=== PATIENT | male | born 1985 | race Caucasian/White ===

== ENCOUNTER 2018-05-01 04:42 | Emergency (ER) | payer OTHER ==
[~2018-05-01] VITALS: Ht 182.9 cm; Wt 81.7 kg
[~2018-05-01 04:42] MED LIST: BACTRIM DS TAB1 EACH PO; PENICILLIN VK250 MG PO; TRAMADOL 50 MG50 MG PO; ZOFRAN ODT4 MG SUBLING
[2018-05-01] MEDS ORDERED: VYVANSE (04:58)
[2018-05-01] MEDS ORDERED: LITHIUM (04:58)
[2018-05-01 05:33] LABS: URINE BILIRUBIN NEGATIVE (Negative); URINE BLOOD NEGATIVE (Negative); URINE CLARITY CLEAR; URINE COLOR YELLOW; URINE GLUCOSE-RANDOM NEGATIVE (Negative); URINE KETONES NEGATIVE (Negative); URINE LEUKOCYTES-REFLEX NEGATIVE (Negative); URINE NITRITE-REFLEX NEGATIVE (Negative); URINE PROTEIN NEGATIVE (Negative); URINE SPECIFIC GRAVITY >= 1.030 (1.005-1.030); URINE UROBILINOGEN 0.2 E.U./dl (0.2-1.0)
[2018-05-01 05:41] LABS: HEMATOCRIT 49.9 % (42.0-52.0); HEMOGLOBIN 16.8 gm/dL (14.0-18.0); MCH 28.7 pg (26.0-34.0); MCHC 33.6 g/dL (28.0-37.0); MCV 85.4 fL (80.0-100.0); MPV 7.8 fl. (7.2-11.1); NUCLEATED RBCS 0 /100WBC; PLATELET COUNT* 202 thou/uL (150-400); RBC 5.84 mil/uL (4.50-6.00); RDW-CV 13.3 % (10.5-14.5); WBC 11.1 thou/uL (4.0-11.0)
[2018-05-01 05:53] LABS: CALCIUM 8.7 mg/dL (8.5-10.1); CREATININE 1.2 mg/dL (0.6-1.3)
[2018-05-01 05:58] LABS: ALBUMIN 4.2 g/dL (3.4-5.0); TOTAL BILIRUBIN 2.5 mg/dL (<0.1-1.0)
[2018-05-01 06:01] LABS: ABSOLUTE LYMPHOCYTES 0.9 thou/uL (0.8-5.3); ABSOLUTE MONOCYTES 0.4 thou/uL (0.0-1.2); ABSOLUTE NEUTROPHILS 9.8 thou/uL (1.6-8.1); PLATELET ESTIMATE ADEQUATE
[2018-05-01 06:02] LABS: ANISOCYTOSIS 1+; POIKILOCYTOSIS 1+
[2018-05-01 06:31] LABS: AMP/METHAMP POSITIVE (Negative); BARBITURATES Negative (Negative); BENZODIAZEPINES Negative (Negative); COCAINE Negative (Negative); METHADONE Negative (Negative); OPIATES Negative (Negative); PCP Negative (Negative); THC POSITIVE (Negative)
[2018-05-01] MEDS ORDERED: HYDROCODON-ACE1 EAC8 PO (06:53)
[2018-05-01] MEDS ORDERED: ZOFRAN ODT4 MG PO (06:53)
[2018-05-01 07:06] VITALS: BP 120/74
== END 2018-05-01 07:07 | disposition home or self-care (01) ==
LOC: M.ERS 04:42
PROVIDERS: Emergency Medicine
DX: R10.32 Left lower quadrant pain (principal); R10.31 Right lower quadrant pain; F90.9 Attention-deficit hyperactivity disorder, unspecified type; F17.210 Nicotine dependence, cigarettes, uncomplicated

== ENCOUNTER → 2018-09-11 | Emergency (ER) | payer OTHER ==
[~2018-09-11] VITALS: Ht 182.9 cm; Wt 79.6 kg
[~2018-09-11] MED LIST changes: +HYDROCODON-ACE1 EAC8 PO; +LITHIUM; +VYVANSE; +ZOFRAN ODT4 MG PO
[2018-09-11 07:57] LABS: HEMATOCRIT 51.7 % (42.0-52.0); HEMOGLOBIN 17.4 gm/dL (14.0-18.0); MCH 28.4 pg (26.0-34.0); MCHC 33.6 g/dL (28.0-37.0); MCV 84.4 fL (80.0-100.0); MPV 8.4 fl. (7.2-11.1); RBC 6.12 mil/uL (4.50-6.00); RDW-CV 13.9 % (10.5-14.5); WBC 15.6 thou/uL (4.0-11.0)
[2018-09-11 08:01] LABS: CALCIUM 10.1 mg/dL (8.5-10.1); CREATININE 1.4 mg/dL (0.6-1.3); POTASSIUM 3.8 mmol/L (3.5-5.1)
[2018-09-11 08:06] LABS: ALBUMIN 4.9 g/dL (3.4-5.0); TOTAL BILIRUBIN 3.3 mg/dL (<0.1-1.0); TOTAL PROTEIN 7.7 g/dL (6.4-8.2)
[2018-09-11 08:07] LABS: ACETAMINOPHEN < 2 ug/mL (10-30); ALCOHOL < 10 mg/dL (<10)
[2018-09-11 08:08] LABS: SALICYLATE < 2.8 mg/dL (2.8-20.0)
[2018-09-11 09:31] LABS: URINE BILIRUBIN NEGATIVE (Negative); URINE BLOOD NEGATIVE (Negative); URINE CLARITY CLEAR; URINE COLOR YELLOW; URINE GLUCOSE-RANDOM NEGATIVE (Negative); URINE KETONES NEGATIVE (Negative); URINE LEUKOCYTES NEGATIVE (Negative); URINE NITRITE NEGATIVE (Negative); URINE PROTEIN NEGATIVE (Negative); URINE UROBILINOGEN 0.2 E.U./dl (0.2-1.0)
[2018-09-11 09:37] LABS: AMP/METHAMP POSITIVE (Negative); BARBITURATES Negative (Negative); BENZODIAZEPINES POSITIVE (Negative); COCAINE Negative (Negative); METHADONE Negative (Negative); OPIATES Negative (Negative); PCP Negative (Negative); THC POSITIVE (Negative)
[2018-09-11 10:45] VITALS: BP 110/68
--- NOTE | 2018-09-11 10:54 | EKG ---
[place] [address] ELECTROCARDIOGRAM REPORT Name: BETH MIXON Room: [facility]#: [id number] Admission: 09/11/18 Attend Phys: Discharge: Date of : 87 Report #: [id number] THIS REPORT FOR: //name// [facility] ED Test Date: 2018-09-11 Test Time: 07:32:51 Pat Name: BETH ZULUAGASUZANNE Department: Room: Gender: M [employer] E[employer]ctor: JEREMY : 1985 Requested By: Dagmar Montenegro Order Number: [id number] MD: Teofilo Clark Measurements Intervals [place] Rate: 110 P: 72 MT: 138 QRS: 71 QRSD: 89 T: 48 QT: 352 QTc: 477 Interpretive Statements Sinus tachycardia Borderline prolonged QT interval Baseline wander in lead(s) V6 No previous ECG available for comparison Electronically Signed On 09-11-2018 10:54:21 CDT by Teofilo Clark [email or web address] <ELECTRONICALLY SIGNED> By: Teofilo Clark MD, [facility] 09/11/18 1054 0732 1 Teofilo Clark MD, FACC /EPI
== END ==
LOC: M.ERS 07:21
PROVIDERS: Personal Emergency Response Attendant
DX: F19.10 Other psychoactive substance abuse, uncomplicated (principal); F17.210 Nicotine dependence, cigarettes, uncomplicated

== ENCOUNTER 2019-01-29 17:47 | Emergency (ER) | payer OTHER ==
[~2019-01-29] VITALS: Ht 182.9 cm; Wt 86.2 kg
[2019-01-29] MEDS ORDERED: NORCO 5-325 TA1 EAC1 PO (19:05)
[2019-01-29] MEDS ORDERED: NAPROSYN500 MG PO (19:05)
[2019-01-29] MEDS ORDERED: MEDROLDOSEPACK PO (19:05)
[2019-01-29 19:58] VITALS: BP 112/51
== END 2019-01-29 19:58 | disposition home or self-care (01) ==
LOC: M.ERS 17:47
DX: M54.16 Radiculopathy, lumbar region (principal); F90.9 Attention-deficit hyperactivity disorder, unspecified type; F17.210 Nicotine dependence, cigarettes, uncomplicated

== ENCOUNTER 2019-02-28 19:04 | Emergency (ER) | payer OTHER ==
[~2019-02-28] VITALS: Ht 180.3 cm; Wt 81.7 kg
[~2019-02-28 19:04] MED LIST changes: +MEDROLDOSEPACK PO; +NAPROSYN500 MG PO; +NORCO 5-325 TA1 EAC1 PO
[2019-02-28] MEDS ORDERED: HYDROCODON-ACE1 EAC8 PO (20:35)
[2019-02-28] MEDS ORDERED: FLEXERIL PO (20:35)
[2019-02-28] MEDS ORDERED: MEDROLDOSEPACK PO (20:39)
[2019-02-28 20:50] VITALS: BP 126/67
== END 2019-02-28 20:52 | disposition home or self-care (01) ==
LOC: M.ERS 19:04
DX: S39.012A Strain of muscle, fascia and tendon of lower back, initial encounter (principal); M62.830 Muscle spasm of back; F90.9 Attention-deficit hyperactivity disorder, unspecified type; F17.210 Nicotine dependence, cigarettes, uncomplicated; V89.2XXA Person injured in unspecified motor-vehicle accident, traffic, initial encounter; Y93.89 Activity, other specified; Y92.89 Other specified places as the place of occurrence of the external cause; Y99.8 Other external cause status

== ENCOUNTER 2019-03-15 20:57 | Emergency (ER) | payer OTHER ==
[~2019-03-15] VITALS: Ht 180.3 cm; Wt 81.7 kg
[~2019-03-15 20:57] MED LIST changes: +FLEXERIL PO
[2019-03-15 21:00] VITALS: BP 123/63
[2019-03-15] MEDS ORDERED: ULTRAM 50MG TAB50 MG PO (21:24)
[2019-03-15] MEDS ORDERED: CLINDAMYCIN HC150 MG PO (21:24)
[2019-03-16] MEDS ORDERED: LIDOCAINE VISC100 ML SWISH&SPIT (11:41)
== END 2019-03-15 21:55 | disposition home or self-care (01) ==
LOC: M.ERS 20:57
DX: S02.5XXA Fracture of tooth (traumatic), initial encounter for closed fracture (principal); K02.9 Dental caries, unspecified; F90.9 Attention-deficit hyperactivity disorder, unspecified type; F17.210 Nicotine dependence, cigarettes, uncomplicated; X58.XXXA Exposure to other specified factors, initial encounter; Y93.89 Activity, other specified; Y92.89 Other specified places as the place of occurrence of the external cause; Y99.8 Other external cause status

== ENCOUNTER 2019-03-16 11:22 | Emergency (ER) | payer OTHER ==
[~2019-03-16] VITALS: Ht 180.3 cm; Wt 81.7 kg
[~2019-03-16 11:22] MED LIST changes: +CLINDAMYCIN HC150 MG PO; +ULTRAM 50MG TAB50 MG PO
[2019-03-16 11:26] VITALS: BP 145/95
[2019-03-16] MEDS ORDERED: LIDOCAINE VISC100 ML SWISH&SPIT (11:41)
== END 2019-03-16 11:49 | disposition home or self-care (01) ==
LOC: M.ERS 11:22
DX: K04.7 Periapical abscess without sinus (principal); F90.9 Attention-deficit hyperactivity disorder, unspecified type; F17.210 Nicotine dependence, cigarettes, uncomplicated

== ENCOUNTER 2019-07-09 21:51 | Emergency (ER) | payer OTHER ==
[~2019-07-09] VITALS: Ht 180.3 cm; Wt 83.9 kg
[~2019-07-09 21:51] MED LIST changes: +LIDOCAINE VISC100 ML SWISH&SPIT
[2019-07-09 22:25] LABS: ABSOLUTE BASOPHILS 0.1 thou/uL (0.0-0.2); ABSOLUTE EOSINOPHILS 0.1 thou/uL (0.0-0.7); ABSOLUTE LYMPHOCYTES 3.2 thou/uL (0.8-5.3); ABSOLUTE MONOCYTES 0.5 thou/uL (0.0-1.2); BASOPHILS 0.6 %; EOSINOPHILS 1.5 %; HEMATOCRIT 43.6 % (42.0-52.0); HEMOGLOBIN 14.9 gm/dL (14.0-18.0); MCH 28.8 pg (26.0-34.0); MCHC 34.3 g/dL (28.0-37.0); MCV 84.1 fL (80.0-100.0); MONOCYTES 5.4 %; MPV 8.2 fl. (7.2-11.1); NUCLEATED RBCS 0 /100WBC; PLATELET COUNT* 193 thou/uL (150-400); POLYS 56.5 %; RBC 5.18 mil/uL (4.50-6.00); RDW-CV 13.3 % (10.5-14.5); WBC 8.9 thou/uL (4.0-11.0)
[2019-07-09 22:30] LABS: URINE BILIRUBIN NEGATIVE (Negative); URINE BLOOD NEGATIVE (Negative); URINE CLARITY CLEAR; URINE COLOR YELLOW; URINE GLUCOSE-RANDOM NEGATIVE (Negative); URINE KETONES NEGATIVE (Negative); URINE LEUKOCYTES-REFLEX NEGATIVE (Negative); URINE NITRITE-REFLEX NEGATIVE (Negative); URINE PROTEIN NEGATIVE (Negative); URINE UROBILINOGEN 0.2 E.U./dl (0.2-1.0)
[2019-07-09 22:31] LABS: CALCIUM 8.7 mg/dL (8.5-10.1); CREATININE 1.2 mg/dL (0.6-1.3); POTASSIUM 3.9 mmol/L (3.5-5.1)
[2019-07-09 22:36] LABS: TOTAL BILIRUBIN 0.9 mg/dL (<0.1-1.0); TOTAL PROTEIN 6.6 g/dL (6.4-8.2)
[2019-07-09 22:37] LABS: AMP/METHAMP Negative (Negative); BARBITURATES Negative (Negative); BENZODIAZEPINES Negative (Negative); COCAINE Negative (Negative); METHADONE Negative (Negative); OPIATES Negative (Negative); PCP Negative (Negative); THC Negative (Negative)
[2019-07-09] MEDS ORDERED: AMITRIPTYLINE H25 M2 PO (23:04)
[2019-07-09] MEDS ORDERED: ZOLOFT100 MG PO (23:04)
[2019-07-09 23:11] VITALS: BP 122/69
== END 2019-07-09 23:11 | disposition home or self-care (01) ==
LOC: M.ERS 21:51
PROVIDERS: Personal Emergency Response Attendant
DX: F41.9 Anxiety disorder, unspecified (principal); F17.210 Nicotine dependence, cigarettes, uncomplicated; Z79.899 Other long term (current) drug therapy

== ENCOUNTER → 2019-10-20 | Outpatient (CLI) | payer OTHER ==
[~2019-10-20] MED LIST changes: +AMITRIPTYLINE H25 M2 PO; +IBUPROFEN 800800 M1 PO; +PREDNISONE50 MG PO; +ZOLOFT100 MG PO
== END ==
LOC: M.MRI 16:29
PROVIDERS: ATTEND Family Medicine
DX: M50.222 Other cervical disc displacement at C5-C6 level (principal); M48.02 Spinal stenosis, cervical region; R20.2 Paresthesia of skin

== ENCOUNTER 2019-10-23 07:08 | Emergency (ER) | payer OTHER ==
[~2019-10-23] VITALS: Ht 182.9 cm; Wt 93.0 kg
[~2019-10-23 07:08] MED LIST changes: -IBUPROFEN 800800 M1 PO; -PREDNISONE50 MG PO
[2019-10-23] MEDS ORDERED: IBUPROFEN 800800 M1 PO (07:28)
[2019-10-23] MEDS ORDERED: FLEXERIL PO (07:28)
[2019-10-23] MEDS ORDERED: NORCO 5-325 TA1 EAC1 PO (07:28)
[2019-10-23] MEDS ORDERED: PREDNISONE50 MG PO (07:28)
[2019-10-23 07:36] VITALS: BP 150/76
== END 2019-10-23 07:36 | disposition home or self-care (01) ==
LOC: M.ERS 07:08
DX: M54.12 Radiculopathy, cervical region (principal); F17.210 Nicotine dependence, cigarettes, uncomplicated

== ENCOUNTER 2020-11-09 09:35 | Emergency (ER) | payer OTHER ==
[~2020-11-09] VITALS: Ht 180.3 cm; Wt 81.7 kg
[~2020-11-09 09:35] MED LIST changes: +IBUPROFEN 800800 M1 PO; +PREDNISONE50 MG PO
[2020-11-09] MEDS ORDERED: EAR WAX DROPS15 ML OTIC (11:14)
[2020-11-09] MEDS ORDERED: AMOXICILLIN 50500 MG PO (11:14)
[2020-11-09 11:22] VITALS: BP 125/71
== END 2020-11-09 11:23 | disposition home or self-care (01) ==
LOC: M.ERS 09:35
DX: S00.412A Abrasion of left ear, initial encounter (principal); H61.22 Impacted cerumen, left ear; F17.210 Nicotine dependence, cigarettes, uncomplicated; X58.XXXA Exposure to other specified factors, initial encounter; Y93.89 Activity, other specified; Y92.89 Other specified places as the place of occurrence of the external cause; Y99.8 Other external cause status

== ENCOUNTER 2020-12-14 13:26 | Emergency (ER) | payer OTHER ==
[~2020-12-14] VITALS: Ht 180.3 cm; Wt 81.7 kg
[~2020-12-14 13:26] MED LIST changes: +AMOXICILLIN 50500 MG PO; +EAR WAX DROPS15 ML OTIC
[2020-12-14] MEDS ORDERED: ZOFRAN ODT4 MG PO (14:10)
[2020-12-14] MEDS ORDERED: VENTOLIN HFA 1818 GM INH (14:10)
[2020-12-14] MEDS ORDERED: FLEXERIL PO (14:10)
[2020-12-14 14:30] VITALS: BP 118/77
== END 2020-12-14 14:31 | disposition home or self-care (01) ==
LOC: M.ERS 13:26
DX: R05 Cough (principal); Z20.822 Contact with and (suspected) exposure to COVID-19; F17.210 Nicotine dependence, cigarettes, uncomplicated

== ENCOUNTER 2021-01-12 19:07 | Emergency (ER) | payer OTHER ==
[~2021-01-12] VITALS: Ht 180.3 cm; Wt 77.1 kg
[~2021-01-12 19:07] MED LIST changes: +VENTOLIN HFA 1818 GM INH
[2021-01-12] MEDS ORDERED: MEDROLDOSEPACK PO (20:22)
[2021-01-12] MEDS ORDERED: FLEXERIL PO (20:22)
[2021-01-12 20:31] VITALS: BP 134/79
== END 2021-01-12 20:31 | disposition home or self-care (01) ==
LOC: M.ERS 19:07
DX: S16.1XXA Strain of muscle, fascia and tendon at neck level, initial encounter (principal); F90.9 Attention-deficit hyperactivity disorder, unspecified type; F17.210 Nicotine dependence, cigarettes, uncomplicated; Z98.890 Other specified postprocedural states; X50.9XXA Other and unspecified overexertion or strenuous movements or postures, initial encounter; Y93.89 Activity, other specified; Y92.812 Truck as the place of occurrence of the external cause; Y99.8 Other external cause status